=== PATIENT | female | born 2000 | race African-American/Black ===

== ENCOUNTER 2024-08-23 17:13 | Emergency (ER) | payer OTHER ==
[~2024-08-23] VITALS: Ht 165.1 cm; Wt 84.5 kg
[2024-08-23 19:42] LABS: BASO % 0.6 % (0.0-1.0); EOS # 0.1 10^3/uL (0.0-0.5); EOS % 0.9 % (0.0-3.0); HEMATOCRIT 40.7 % (36.0-47.0); HEMOGLOBIN 13.3 g/dl (12.0-15.5); LYMPH # 2.4 10^3/uL (1.5-5.0); LYMPH % 37.9 % (24.0-44.0); MEAN CORPUSCULAR HEMOGLOBIN 30.4 pg (27.0-33.0); MEAN CORPUSCULAR HGB CONC 32.7 g/dl (32.0-36.5); MEAN CORPUSCULAR VOLUME 93.1 fl (80.0-96.0); MONO # 0.5 10^3/uL (0.0-0.8); NEUTROPHILS # 3.4 10^3/uL (1.5-8.5); NEUTROPHILS % 53.4 % (36.0-66.0); PLATELET COUNT, AUTOMATED 279 10^3/uL (150-450); RED BLOOD COUNT 4.37 10^6/uL (4.00-5.40); WHITE BLOOD COUNT 6.4 10^3/uL (4.0-10.0)
[2024-08-23 20:00] LABS: HCG, SERUM QUANTITATIVE < 2.6 MIU/ML (<4.2)
[2024-08-23 20:02] LABS: BLOOD UREA NITROGEN 12 MG/DL (9-23); CALCIUM LEVEL 8.9 MG/DL (8.5-10.1); CARBON DIOXIDE LEVEL 24 MMOL/L (20-31); CHLORIDE LEVEL 108 MMOL/L (98-107); CREATININE FOR GFR 0.65 MG/DL (0.55-1.30); GLOMERULAR FILTRATION RATE > 60.0 (>60); GLUCOSE, FASTING 117 MG/DL (60-100); POTASSIUM SERUM 3.8 MMOL/L (3.5-5.1); SODIUM LEVEL 141 MMOL/L (136-145)
[2024-08-24] MEDS ORDERED: IBUP80TA PO (01:23)
[2024-08-24] MEDS: KETOROLAC 30 MG/ML 1ML VIAL IM ONE (01:33)
[2024-08-24 01:34] VITALS: BP 118/57; TEMP 98.3; O2SAT 100
== END 2024-08-24 01:43 | disposition home or self-care (01) ==
LOC: M ED 17:13 → EDBD 17:13 → M ED 08-24 01:43
DX: N93.8 Other specified abnormal uterine and vaginal bleeding (principal); Z79.1 Long term (current) use of non-steroidal anti-inflammatories (NSAID)
CPT/HCPCS: 80048; 84702; 85025; 86850; 86900; 86901; 96372; 99284; J1885

== ENCOUNTER 2024-09-19 10:59 | Inpatient (IN) | payer OTHER ==
[~2024-09-19] VITALS: Ht 165.1 cm; Wt 88.1 kg
[~2024-09-19 10:59] MED LIST: IBUP80TA PO
[2024-09-19] MEDS ORDERED: ISOVUE-370 76% 100ML VIAL As Ordered ONE (11:41)
[2024-09-19 12:13] LABS: VENOUS BASE EXCESS -0.9 (-2.0-2.0); VENOUS HCO3 25.5 MMOL/L (23.0-27.0); VENOUS O2 SATURATION 77.6 % (60.0-80.0); VENOUS PARTIAL PRESSURE CO2 48.4 mmHg (38.0-50.0); VENOUS PH 7.339 UNITS (7.330-7.430); VENOUS STANDARD HCO3 23.3 MMOL/L
[2024-09-19 12:17] LABS: BASO % 0.4 % (0.0-1.0); EOS # 0.1 10^3/uL (0.0-0.5); EOS % 0.7 % (0.0-3.0); HEMOGLOBIN 13.7 g/dl (12.0-15.5); LYMPH # 2.7 10^3/uL (1.5-5.0); LYMPH % 38.9 % (24.0-44.0); MEAN CORPUSCULAR HEMOGLOBIN 31.1 pg (27.0-33.0); MEAN CORPUSCULAR HGB CONC 33.4 g/dl (32.0-36.5); MONO # 0.5 10^3/uL (0.0-0.8); MONO % 7.7 % (2.0-8.0); NEUTROPHILS # 3.6 10^3/uL (1.5-8.5); NEUTROPHILS % 51.9 % (36.0-66.0); PLATELET COUNT, AUTOMATED 280 10^3/uL (150-450); RED BLOOD COUNT 4.41 10^6/uL (4.00-5.40)
[2024-09-19 12:42] LABS: CK-MB VALUE MASS < 1.0 NG/ML (<3.6); ETHYL ALCOHOL (ETHANOL) 0.003 % (0.000-0.010)
[2024-09-19 12:43] LABS: SALICYLATE LEVEL < 3.0 MG/DL (<30)
[2024-09-19 12:44] LABS: ALBUMIN 3.5 G/DL (3.2-5.2); ALKALINE PHOSPHATASE 97 U/L (35-104); ALT/SGPT 19 U/L (7.0-40); AST/SGOT 16 U/L (<34); BILIRUBIN,DIRECT 0.1 MG/DL (<0.4); BILIRUBIN,TOTAL 0.4 MG/DL (0.3-1.2); BLOOD UREA NITROGEN 10 MG/DL (9-23); CARBON DIOXIDE LEVEL 25 MMOL/L (20-31); CHLORIDE LEVEL 106 MMOL/L (98-107); CREATININE FOR GFR 0.61 MG/DL (0.55-1.30); GLOMERULAR FILTRATION RATE > 60.0 (>60); GLUCOSE, FASTING 80 MG/DL (60-100); POTASSIUM SERUM 3.5 MMOL/L (3.5-5.1); SODIUM LEVEL 143 MMOL/L (136-145); TOTAL PROTEIN 7.7 G/DL (5.7-8.2)
[2024-09-19 12:46] LABS: THYROID STIMULATING HORMONE 2.154 uIU/ML (0.55-4.78)
[2024-09-19 12:51] LABS: HCG, SERUM QUALITATIVE NEGATIVE (NEGATIVE)
[2024-09-19] MEDS: LIDOCAINE 2% 5ML JELLY UROJET TOP ONE (12:56)
[2024-09-19] MEDS: NS 500 ML IV ONE (12:56)
[2024-09-19 13:00] LABS: CPK CREATINE PHOSPHOKINASE 131 U/L (34-145); MB/CK RELATIVE INDEX 0.76 (< OR =4)
[2024-09-19 13:04] LABS: KETONE, URINE AUTO RFX NEGATIVE (NEGATIVE); LEUKOCYTE ESTERASE UR AUTO RFX NEGATIVE (NEGATIVE); MUCUS, URINE RFX SMALL (NEGATIVE); NITRITE, URINE AUTO RFX NEGATIVE (NEGATIVE); RBC, URINE AUTO RFX 0 /HPF (0-3); SQUAM EPITHELIAL CELL UR AURFX 3 /HPF (0-6); WBC, URINE AUTO RFX 0 /HPF (0-3)
[2024-09-19 13:13] LABS: INR 0.98; PROTHROMBIN TIME 13.3 SECONDS (12.5-14.5)
[2024-09-19 13:18] LABS: AMPHETAMINES LEVEL URINE NEGATIVE (NEGATIVE); BARBITURATES URINE NEGATIVE (NEGATIVE); BENZODIAZEPINES URINE NEGATIVE (NEGATIVE); CANNABINOIDS URINE NEGATIVE (NEGATIVE); COCAINE METABOLITE URINE NEGATIVE (NEGATIVE); METHADONE URINE NEGATIVE (NEGATIVE); OPIATES URINE NEGATIVE (NEGATIVE); PHENCYCLIDINE URINE NEGATIVE (NEGATIVE)
[2024-09-19 13:21] LABS: CK-MB VALUE MASS < 1.0 NG/ML (<3.6)
[2024-09-19 13:25] LABS: CPK CREATINE PHOSPHOKINASE 122 U/L (34-145); MB/CK RELATIVE INDEX 0.81 (< OR =4)
[2024-09-19] MEDS ORDERED: HOME MED LIST COMPLETE! XX SCH (14:20)
[2024-09-19 15:05] LABS: C REACTIVE PROTEIN QUANTITATIV 0.76 MG/DL (<1.0)
[2024-09-19 15:07] LABS: FREE T4 1.18 NG/DL (0.89-1.76)
[2024-09-19 15:08] LABS: FOLATE 14.94 NG/ML (>5.4); VITAMIN B12 LEVEL 670 PG/ML (211-911)
[2024-09-19] MEDS ORDERED: ACETAMINOPHEN 325 MG TAB PO PRN (16:00)
[2024-09-19 16:08] LABS: HIV 1&2 SCREEN NEGATIVE (NEGATIVE)
[2024-09-19] MEDS ORDERED: diphenhydrAMINE 25MG CAP PO PRN (19:05)
[2024-09-19] MEDS ORDERED: traZODone 50 MG TAB PO PRN (19:05)
[2024-09-19] MEDS ORDERED: MOM 30ML SUSPENSION UDC PO PRN (19:05)
[2024-09-19] MEDS ORDERED: IBUPROFEN 400MG TAB PO PRN (19:05)
[2024-09-19] MEDS ORDERED: MAALOX 30 ML SUSP *UDC PO PRN (19:05)
[2024-09-19 21:32] VITALS: BP 129/71; TEMP 97.8; O2SAT 99
[2024-09-20 06:47] VITALS: BP 134/82; TEMP 97.5; O2SAT 100
[2024-09-20 15:54] VITALS: BP 128/72; TEMP 97.4; O2SAT 99
[2024-09-21 06:57] VITALS: BP 114/61; TEMP 97.5; O2SAT 98
[2024-09-21 16:05] VITALS: BP 121/70; TEMP 97.4; O2SAT 100
[2024-09-22 07:01] VITALS: BP 135/60; TEMP 97.8; O2SAT 97
[2024-09-22 15:27] VITALS: BP 115/57; TEMP 97.3; O2SAT 100
[2024-09-23 06:42] VITALS: BP 109/68; TEMP 97.3; O2SAT 100
[2024-09-23 16:47] LABS: ANA PATTERN Nuclear, Speckled (NEGATIVE); ANA PATTERN 2 Cytoplasmic; ANA SCREEN, IFA POSITIVE (NEGATIVE); ANA TITER 1:40 titer (<1:40); ANA TITER 2 1:40 titer (NEGATIVE)
== END 2024-09-23 11:35 | disposition home or self-care (01) | DRG 882 ==
LOC: M ED 10:59 → M ED INP 19:05 → M PSY 21:18
PROVIDERS: ADMIT Psychiatry & Neurology Neurology; ATTEND Psychiatry & Neurology Neurology
DX: F43.22 Adjustment disorder with anxiety (principal); R45.851 Suicidal ideations; M25.50 Pain in unspecified joint

== ENCOUNTER → 2025-02-18 | Outpatient (CLI) | payer OTHER ==
[~2025-02-18] MED LIST changes: +PROHANCE 279.3MG/ML 15ML VIAL ONE; +PROHANCE 279.3MG/ML 5ML VIAL ONE
== END ==
LOC: M PLAIMG 13:11
PROVIDERS: ATTEND Physician Assistant
DX: E32.9 Disease of thymus, unspecified (principal)
CPT/HCPCS: 71552; A9576

== ENCOUNTER → 2025-05-14 | Outpatient (CLI) | payer OTHER ==
[~2025-05-14] MED LIST changes: -PROHANCE 279.3MG/ML 15ML VIAL ONE; -PROHANCE 279.3MG/ML 5ML VIAL ONE
== END ==
LOC: M WHC 12:36
DX: N63.20 Unspecified lump in the left breast, unspecified quadrant (principal)